=== PATIENT | female | born 1965 | race Caucasian/White ===

== ENCOUNTER → 2019-02-07 09:33 | Outpatient (CLI) | payer OTHER, SELFPAY ==
--- NOTE | 2019-02-07 16:20 | PCM.PN.BLA ---
Progress Note Patient was scheduled for left stereotactic breast biopsy. She was placed on the stereotactic biopsy table and the abnormal area of breast was attempted to be localized. However, after numerous attempts - no suspicious lesion could be localized. Therefore the procedure was cancelled. Patient will be followed up at [facility] imaging services.
== END ==
PROVIDERS: Family Provider Student in an Organized Health Care Education/Training Program; PCP Student in an Organized Health Care Education/Training Program; Referring Provider Surgery; Visit Provider Surgery
DX: Z53.8 Procedure and treatment not carried out for other reasons (principal)
CPT/HCPCS: 19081

== ENCOUNTER 2020-05-01 10:59 | Day surgery (SDC) | payer OTHER, SELFPAY ==
--- NOTE | 2020-04-30 08:14 | PCM.HPOB.BLA ---
- Problem List (1) Menorrhagia Status: Acute History and Physical Date of Admission: 05/01/20 DATE OF SERVICE: April 23, 2020 ? PROBLEM:?Menorrhagia, polyp ? DIAGNOSIS:?Menorrhagia, polyp ? PAST SURGICAL HISTORY:? PAST SURGICAL HISTORY PAST SURGICAL HISTORY Procedure Laterality Date ? COLONOSCOP W/ OR W/O BRSH SPEC ? 10/24/2018 ? Colonoscopy - 10 yr interval ? EGD W/O OR W/BRUSH/WASH ? 10/24/2018 ? EGD ? LIGATE FALLOPIAN TUBE ? 2000 ? Tubal ligation ? PAST MEDICAL HISTORY:? PAST MEDICAL HISTORY PAST MEDICAL HISTORY Diagnosis Date ? ascus pap 2000 ? Abn. Pap smear (cervix), f/u paps nl ? Hypertension ? ? Mitral valve disorders(424.0) ? ? MVP diagnosis ? Plantar fasciitis of left foot ? ? PMH - PAST MEDICAL HISTORY OF ? ? Rosacea ? Renal calculus ? ? SUBJECTIVE:?Regular menses and heavy flow. Has been on ocp in the past.? ? SOCIAL HISTORY:? SOCIAL HISTORY Social History ? Tobacco Use ? Smoking status: Former Smoker ? ? Quit date: 04/11/1992 ? ? Years since quittin.0 ? Smokeless tobacco: Never Used ? Tobacco comment: quit about 14 yrs. ago. Substance Use Topics ? Alcohol use: No ? Drug use: No ? 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 Endometrial thickness 10.3mm there is a well circumscribed endometrial polyp in the lower uterine segment- feeding vessels appreciated and measures 1.6cm in greatest dimension. myometrium appears normal. Both ovaries are normal. No free fluid in the culdesac Recommendations Consider hysteroscopic evaluation and management of intracavitary lesion if clinically indicated. ? Allergies: ?Cinnamon ?Swelling ?Tetracycline ?Intolerance ??Comment:pt got headaches from med ?Tree Nuts ?Itching ??Comment:Mouth sores ? Current Outpatient Medications on File Prior to Visit Medication Sig ? selenium sulfide 2.5 % lotn Use daily or every other day to face, 1-2x/weekly to chest/back/scalp. Lather, wait 5 minutes, rinse off. ? losartan (COZAAR) 50 mg tablet Take 1 tablet by mouth once daily. ? omeprazole magnesium (PRILOSEC OTC ORAL) Take by mouth once daily. ? CALCIUM CARBONATE/VITAMIN D3 (VITAMIN D-3 ORAL) Take ?by mouth. ? CYANOCOBALAMIN, VITAMIN B-12, (VITAMIN B-12 ORAL) Take ?by mouth. ? CRANBERRY FRUIT EXTRACT (CRANBERRY ORAL) Take ?by mouth. ? Blood Pressure Cuff - Home Use BLOOD PRESSURE CUFF FOR HOME USE. DX: LABILE BLOOD PRESSURE ? CALCIUM CARBONATE (CALCIUM 500 ORAL) Take ?by mouth. ? MULTIVITAMIN TAB Take one(1) tablet daily. No current facility-administered medications on file prior to visit. ? OBJECTIVE: ? VITALS: BP 130/88 ? Pulse 64 ? Resp 16 ? Ht 5' 7 (1.702 m) ? Wt 236 lb 3.2 oz (107.1 kg) ? LMP 01/25/2020 ? BMI 36.99 kg/m? ? HEENT: ?Normocephalic, atraumatic, Mucus membranes moist without lesions. ? NECK: ???Soft and Supple. ?No adenopathy , thyromegaly or bruits. ? SKIN: No lesions. ? CHEST: Clear to auscultation. ?No wheezes or rales. ?Good air exchange. ? HEART: Regular rate and rhythm ?No S3 or S4. ?No gallops or rubs. ? BACK: Nontender with no CVA tenderness. ? ABDOMEN: Soft, non-tender, non-distended, no masses, no hepatosplenomegaly. ? LOWER EXTREMITIES: There was no pitting edema, no palpable cords and no skin changes. ? ? ? ASSESSMENT:?Menorrhagia, polyp ? PLAN:?Discussed hysteroscopy, D&C, polypectomy.?The rationale for the proposed surgery was discussed in addition to risks, benefits, and alternatives. ?General pre- and post-operative care was reviewed. ?Questions were answered. ?After discussion, the patient indicated a desire to proceed with the planned surgery. ? Mague Verma,?DO
[2020-05-01] VITALS (8 sets, daily range): BP systolic 113–152; BP diastolic 60–83; PULSE 61–66; RESP 16–18; TEMP 36.3–37.2; O2SAT 95–100; BMI 37.0
[2020-05-01] MEDS: Lactated Ringers 1,000 ML 100 ML IV (12:04)
[2020-05-01 12:11] LABS: Hematocrit 40.6 % (37-47); Hemoglobin 13.3 g/dL (12.0-15.0); Mean Corp Hgb Conc 32.8 g/dL (32-36); Mean Corpuscular Hgb 27.9 pg (27.0-32.0); Mean Corpuscular Volume 85.3 fL (81-99); Platelet Count 238 K/mm3 (150-450); RBC Distribution Width CV 12.6 % (11.6-14.6); RBC Distribution Width SD 38.8 fl (35.1-43.9); Red Blood Count 4.76 M/mm3 (4.2-5.4); White Blood Count 8.1 K/mm3 (4.4-11.0)
[2020-05-01 12:21] LABS: Internal QC Validated? YES +Cl - CLEAR BKGD; Pregnancy, Urine Negative Negative
--- NOTE | 2020-05-01 12:35 | CER_PTH ---
PATIENT: SUHA RIVERA LOC: [facility] [place] U#:[id number] AGE/SX: 54/F ROOM: RE05/01/[address]: Dr. Mague Verma DO : 1965 BED: DIS: 05/01/2020 SPEC #: [id number] RECD: 05/01/20 14:13 STATUS: CHASE NAN #: [id number] DEON: 05/01/20 12:[address]: Mague Verma DEPT: SURGICAL PATHOLOGY RECD BY: Melissa Graves ENTERED: 05/02/20 07:14 SP TYPE: CERV OTHR DR: Dr. Pedro Bernabe DO Tissues: Endocervical Procedures: Surgery Specimen Level IV HEADER OPERATION: Hysteroscopy, D & C, polypectomy PRE-OP DIAGNOSIS: Menorrhagia, polyp TISSUE SUBMITTED: Endocervical polyp and endometrial curettings MICROSCOPIC DIAGNOSIS Endocervical polyp and endometrial biopsy: Polypoid fragments of mildly disordered proliferative endometrium. Fragments of benign endocervix. AM:rudy 05/05/2020 MICROSCOPIC DESCRIPTION Slides are reviewed. GROSS DESCRIPTION Received in fixative is one container labeled with the patient's name and designated endocervical polyp and endometrial curettings. The specimen consists of multiple fragments of hemorrhagic soft tissue that in aggregate measure 5 x 3 x 0.3 cm. The specimen is totally submitted in two cassettes. / SJ:rudy 05/02/20 TC:5 CPT: 63834
[2020-05-01] MEDS: Lidocaine 1% (20 ml mdv) 20 ML Vial (12:58)
--- NOTE | 2020-05-01 13:07 | DCINST_ITS ---
Discharge Diet: No Restrictions Discharge Activity: [address] Drive - 24 hours or more after surgery Return to work on:: 05/05/20 May resume sexual activity in: 1 week - No tampons, no intercourse, no tub baths, no hot tubs Weight Bearing Status: Weight bearing as tolerated Lifting Restrictions: No restrictions Call your doctor if you observe: Fever of 101 or Higher, Inability to urinate, Inability to have a bowel movement, Using more than one pad per hour, Shortness of breath, Dizziness, Fainting spells, Swelling in the ankles, Chest pain, Increased palpitations (irregular heartbeat), Calf discomfort, Uncontrolled pain Allergies/Adverse Reactions: Allergies cinnamon Allergy (Verified 04/25/20 15:55) Swelling tree nut Allergy (Verified 04/25/20 15:55) Swelling Tetracyclines Adverse Reaction (Verified 04/25/20 15:55) HEADACHE Medications to take at Discharge Cranberry Fruit Extract [Cranberry] 4,200 mg PO DAILY 04/25/20 Losartan Potassium [Cozaar] 50 mg PO DAILY 04/25/20 Min-Westfall 1 tab PO DAILY 04/25/20 Multivitamin with Minerals [Multiple Vitamin] 1 ea PO DAILY 04/25/20 Omeprazole [Prilosec] 20 mg PO DAILY 04/25/20 Orders to be completed after discharge: Type & Screen - PAT ONLY Time Frame: 05/01/20, Facility: [facility], Location: Laboratory Primary Care Physician: Pedro Bernabe DO [Primary Care Provider] - Test Results: Test results from this visit will be discussed in further detail at your follow- up appointment, if applicable. Please Follow Up With: Mague Verma DO When: 1 week Proposed Discharge Date: 05/01/20
--- NOTE | 2020-05-01 13:11 | OP.PCM_ITS ---
Problem List (1) Menorrhagia Status: Acute (2) Endocervical polyp Status: Acute Report of Operation Date of Procedure: 05/01/20 Pre-Operative Diagnosis: Menorrhagia, polyp Post-Operative Diagnosis: As above Surgery/Procedure Performed:: Hysteroscopy, polypectomy, D&C Description of Surgical Findings:: One small endocervical polyp was noted. The uterine cavity was normal-appearing without polyps or fibroids present. Bilateral tubal ostia were visualized. Type of Anesthesia:: MAC Special Medications: None Specimen's removed: Endocervical polyp and endometrial curettings Drains: None Estimated Blood Loss (mL): < 50 cc Fluids Replaced: 0 cc fluid deficit Description of Procedure: Patient was taken back to the operating room where MAC anesthesia was induced. She was prepped and draped in the dorsal lithotomy position using yellowfin stirrups. A weighted speculum was placed to expose the cervix. The anterior lip of the cervix was grasped with a single-tooth tenaculum. The cervix was serially dilated to accommodate the Symphion hysteroscope. The Symphion hysteroscope was advanced to the fundus of the uterus and using normal saline as distention media the uterus was distended. The uterine cavity was normal- appearing with no polyps or fibroids. Bilateral tubal ostia were visualized. The hysteroscope was slowly removed through the cervical canal, and a small endocervical polyp was noted just at the external os. The hysteroscope was removed. Polyp forceps were used to remove the small endocervical polyp. A sharp curettage was performed to remove a moderate amount of endometrial tissue. The polyp and endometrial curettings were sent to pathology for review. Bleeding was hemostatic. All instruments were removed from the vagina. Vaginal sweep was performed. Sponge and instrument counts were correct. The patient was taken recovery in stable condition. Grafts/Implants Used: None - Complications None - Admit VTE Documentation VTE Present on Admission: No VTE Mechan Device Prophylaxis: SCD's VTE Pharm Prophylaxis ordered?: No
== END 2020-05-01 14:13 | disposition home or self-care (01) ==
LOC: SDC 11:00 → AC 11:37
PROVIDERS: PCP Student in an Organized Health Care Education/Training Program; Referring Provider Obstetrics & Gynecology; Visit Provider Obstetrics & Gynecology
PROC: 0UB98ZZ Excision of Uterus, Via Natural or Artificial Opening Endoscopic (ICD-10-PCS; CPT 58558; principal; 2020-05-01 12:20)
DX: N84.0 Polyp of corpus uteri (principal); N92.0 Excessive and frequent menstruation with regular cycle; I10 Essential (primary) hypertension; K21.9 Gastro-esophageal reflux disease without esophagitis; Z79.899 Other long term (current) drug therapy; Z87.891 Personal history of nicotine dependence
CPT/HCPCS: 00952; 58558; 81025; 85027; 86850; 86900; 86901; 88305; J7120; J2405